=== PATIENT | female | born 1955 | race Caucasian/White ===

== ENCOUNTER → 2017-01-29 | Outpatient (CLI) | payer BC ==
[~2017-01-29] MED LIST: NORCO 325 MG-51 TAB PO; PERCOCET 325 MG1 TA2 PO; SENOKOT S 50 MG1 TAB PO; ZESTRIL 10MG10 MG PO; ZOCOR 20MG20 MG PO; ZYRTEC5 MG PO
== END ==
LOC: COL.LAB 08:33
DX: R35.0 Frequency of micturition (principal); N99.3 Prolapse of vaginal vault after hysterectomy

== ENCOUNTER 2017-01-30 09:55 | Day surgery (SDC) | payer BC ==
[2017-01-30] VITALS (9 sets, daily range): BP systolic 80–154; BP diastolic 38–70; PULSE 66–85; TEMP 96.9–98.3
[~2017-01-30] VITALS: Ht 154.9 cm; Wt 68.6 kg
[2017-01-30] MEDS ORDERED: ZESTRIL 10MG10 MG PO (10:14)
[2017-01-30] MEDS ORDERED: ZOCOR 20MG20 MG PO (10:14)
[2017-01-31 01:48] VITALS: BP 101/46; PULSE 80; TEMP 98.4
[2017-01-31 05:43] VITALS: BP 107/53; PULSE 73; TEMP 97.6
[2017-01-31 09:06] VITALS: BP 131/64; PULSE 82; TEMP 97.6
[2017-01-31] MEDS ORDERED: PERCOCET 325 MG1 TA2 PO (13:43)
[2017-01-31] MEDS ORDERED: SENOKOT S 50 MG1 TAB PO (13:43)
== END 2017-01-31 14:00 | disposition home or self-care (01) ==
LOC: SDCO 09:55 → EDSTATUS 13:30 → SDCO 13:30 → SURG 13:30 → SDCO 01-31 14:00
DX: N99.3 Prolapse of vaginal vault after hysterectomy (principal); N81.11 Cystocele, midline; N81.6 Rectocele; N39.3 Stress incontinence (female) (male); N99.2 Postprocedural adhesions of vagina; N99.4 Postprocedural pelvic peritoneal adhesions; E78.5 Hyperlipidemia, unspecified; I10 Essential (primary) hypertension; Z80.0 Family history of malignant neoplasm of digestive organs
CPT/HCPCS: OP; A4315; C1713; C1771; C1781; G0378; J0690; J1100; J1170; J1885; J2175; J2405; J2704; J3010; J7120

== ENCOUNTER 2017-02-04 17:54 | Inpatient (IN) | payer BC ==
[~2017-02-04] VITALS: Ht 154.9 cm; Wt 69.0 kg
[~2017-02-04 17:54] MED LIST changes: -NORCO 325 MG-51 TAB PO; -ZYRTEC5 MG PO
[2017-02-04] MEDS ORDERED: NORCO 325 MG-51 TAB PO (18:03)
[2017-02-04 18:53] LABS: BASO % 0.3 % (0.0-2.0); EOS % 0.2 % (0-4.0); GRAN # 10.4 (1.4-6.5); GRAN % 81.1 % (42.2-75.2); HEMATOCRIT 45.4 % (37.0-47.0); HEMOGLOBIN 15.9 g/dl (12.5-16.0); LYMPH # 1.5 (1.2-3.4); LYMPH % 11.9 % (20.0-51.0); MEAN CELL VOLUME 88 fl (80.0-100.0); MEAN CORPUSCULAR HEMOGLOBIN 31 pg (27.0-31.0); MEAN CORPUSCULAR HGB CONC 35 g/dl (33.0-37.0); MONO # 0.8 (0.1-0.6); MONO % 6.2 % (1.7-9.3); PLATELET COUNT 271 K/mm3 (130-400); RED BLOOD COUNT 5.14 M/mm3 (4.10-5.30); REDCELL DISTRIBUTION WIDTH-CV 12.2 % (11.5-14.5); WHITE BLOOD COUNT 12.8 K/mm3 (4.8-10.8)
[2017-02-04 19:00] LABS: PH 5 (5-8); URINE APPEARANCE Hazy; URINE BACTERIA Rare /hpf; URINE BILIRUBIN Negative (NEGATIVE); URINE BLOOD 2+ (NEGATIVE); URINE COLOR Yellow; URINE GLUCOSE Negative (NEGATIVE); URINE KETONE Trace (NEGATIVE); URINE RBC 20-50 /hpf; URINE UROBILINOGEN Negative (NEGATIVE)
[2017-02-04 19:01] LABS: URINE WBC 20-50 /hpf
[2017-02-04 19:04] LABS: ADJUSTED CALCIUM 9.1 mg/dL (8.4-10.2); ALANINE AMINOTRANSFERASE 35 U/L (9-52); ALBUMIN 5.1 gm/dL (3.5-5.0); ALKALINE PHOSPHATASE 87 U/L (50-136); ANION GAP 18 mmol/L (7-16); BILIRUBIN,TOTAL 1.4 mg/dL (0.0-1.0); BLOOD UREA NITROGEN 14 mg/dL (7-17); CARBON DIOXIDE 24 mmol/L (22-30); CHLORIDE 95 mmol/L (98-107); CREATININE, serum 0.64 mg/dL (0.52-1.25); GLUCOSE 135 mg/dL (74-106); LIPASE 72 U/L (23-300); POTASSIUM 4.1 mmol/L (3.4-5.0); SODIUM 137 mmol/L (137-145)
[2017-02-04 19:08] LABS: C-REACTIVE PROTEIN < 0.5 mg/dL (0.0-0.9)
[2017-02-04 22:06] VITALS: BP 145/72; PULSE 78; TEMP 98.7
[2017-02-04] MEDS ORDERED: ZYRTEC5 MG PO (22:14)
[2017-02-05 01:57] VITALS: BP 125/58; PULSE 70; TEMP 98.4
[2017-02-05 06:10] VITALS: BP 140/69; PULSE 78; TEMP 98.5
[2017-02-05 10:16] VITALS: BP 138/67; PULSE 65; TEMP 98.5
[2017-02-05 13:18] VITALS: BP 144/65; PULSE 62; TEMP 98.7
[2017-02-05 17:20] VITALS: BP 139/71; PULSE 65; TEMP 98.8
[2017-02-05 21:30] VITALS: BP 139/68; PULSE 86; TEMP 98.2
[2017-02-06 02:03] VITALS: BP 122/62; PULSE 71; TEMP 98.2
[2017-02-06 04:57] VITALS: BP 133/74; PULSE 89; TEMP 98.6
[2017-02-06 09:30] VITALS: BP 134/59; PULSE 75; TEMP 98.5
== END 2017-02-06 13:42 | disposition home or self-care (01) | DRG 395 ==
LOC: COL.ER 17:54 → SURG 20:58
PROVIDERS: Emergency Medicine
DX: K91.3 Postprocedural intestinal obstruction (principal); I10 Essential (primary) hypertension
CPT/HCPCS: J0696; J1885; J2405; J7030; J7120; Q9967